=== PATIENT | female | born 1960 | race Caucasian/White ===

== ENCOUNTER 2017-01-15 22:30 | Emergency (ER) | payer MEDICARE ==
--- NOTE | ~2017-01-15 | CR72 ---
[facility] A Service of [facility] & [facility] RADIOLOGY TEXT RESULTS PATIENT: OLAN WILKINSON LOCATION: [facility] : 60 UNIT #: [id number] AGE: [address]: Toribio Pace MD SEX: F ORDER DR: [id number] [facility] [address] [place], [place] [address] [id number] E MR#: [id number] Acc #: [id number] NAME: LOAN WILKINSON : 1960 SEX: F STUDY DATE/TIME: 01/15/2017 20:53 UNIT: [facility] ROOM: STUDY DESCRIPTION: CR Chest Single View Portable Attending Physician: Er Doctor [facility] Ordering Physician: Giovanni Caputo M.D. Primary Care Physician: Primary Care Physician No MEDICAL IMAGING REPORT This report is preliminary unless electronic signature is present EXAM Frontal chest, 01/15/2017 INDICATION 56-year-old female with cough, congestion, shortness of air with activity, weakness. Symptoms began 3 days ago. Tobacco abuse 43 years. TECHNIQUE Frontal chest compared to 11/03/2012 FINDINGS Cardiac silhouette is within normal limits. The vascularity is unremarkable. Lungs are clear. No pneumothorax. IMPRESSION Negative frontal chest. Dictated by... Greyson Dudley M.D. THIS IS AN ELECTRONICALLY VERIFIED REPORT Greyson Dudley M.D. at 01/16/2017 10:19 AM Margret TD: 01/16/2017 03:35 JOB #: [id number] MEDICAL IMAGING REPORT COPY
[~2017-01-15 22:30] MED LIST: ALBUTEROL17 GM INH; ALPRAZOLAM PO; ATARAX PO; CYMBALTA PO; FLEXERIL PO; FLEXERIL10 M1 PO; IBUPROFEN PO; IBUPROFEN800 MG PO; LISINOPRIL; MEDROL DOSEPAK4 MG PO; MEDROL PO; METFORMIN; PERCOCET PO; PRILOSEC PO; TEGRETOL PO; VISTARIL PO; ZANTAC PO; ZITHROMAX PO
[2017-01-15 22:38] LABS: INFLUENZA A POS (NEG); INFLUENZA B NEG (NEG)
== END 2017-01-15 23:05 | disposition home or self-care (01) ==
LOC: CED 22:30
PROVIDERS: Emergency Medicine
DX: J10.1 Influenza due to other identified influenza virus with other respiratory manifestations (principal); F17.210 Nicotine dependence, cigarettes, uncomplicated; Z88.1 Allergy status to other antibiotic agents; Z88.8 Allergy status to other drugs, medicaments and biological substances
CPT/HCPCS: 71010; 87804; 99283